=== PATIENT | female | born 1970 | race Caucasian/White ===

== ENCOUNTER 2020-04-28 13:24 | Observation (INO) | payer OTHER ==
[~2020-04-28] VITALS: Ht 172.7 cm; Wt 74.8 kg
[2020-04-28 14:40] LABS: RED BLOOD COUNT 4.35 M/UL (4.00-5.10); WHITE BLOOD COUNT 4.2 K/UL (4.5-11.0)
[2020-04-28 15:13] LABS: BUN/CREATININE RATIO 21 (0-10)
[2020-04-28] MEDS ORDERED: ZYRTEC10 MG PO (17:34)
[2020-04-28] MEDS ORDERED: FISH OIL 1,0001 EACH PO (17:35)
[2020-04-28] MEDS ORDERED: MAGNESIUM500 MG PO (17:36)
[2020-04-28] MEDS ORDERED: ASPIRIN 325MG325 MG PO (17:37)
[2020-04-28] MEDS ORDERED: MULTI-VITAMIN1 EACH PO (17:37)
[2020-04-28] MEDS ORDERED: ALEVE220 MG PO (17:39)
[2020-04-29 04:08] LABS: HEMOGLOBIN 12.3 gm/dl (12.3-15.3); RED BLOOD COUNT 4.19 M/UL (4.00-5.10); WHITE BLOOD COUNT 3.5 K/UL (4.5-11.0)
[2020-04-29 04:33] LABS: BUN/CREATININE RATIO 22 (0-10)
--- NOTE | 2020-04-29 19:11 | NUR ---
UPON SHIFT ARRIVAL [facility] RN STATED THE PT WAS CLEARED BY NEUROLOGY TO GO HOME; JUST WAITING FOR DC ORDERS FROM HOSPITALIST DR. OVALLES; THE RN ON [facility] STATED THEY HAD CALLED HIM NUMEROUS TIMES AND COULD NOT GET AHOLD OF HIM AND THE MD NEVER DID RETURN THE CALLS. AFTER SHIFT CHANGE THE OF THE PT CAME OUT AND WAS CLEARLY AGGRAVATED WANTING TO GO HOME. I TRIED TO CALL DR. OVALLES AGAIN WHILE THE OF THE PT WAS STANDING HERE HE DID NOT ANSWER. I THEN WENT STRAIGHT UP TO [facility] OFFICE AND EXPLAINED THE SITUATION, GILBERT CALLED FROM THE HOUSE NUMBER AND HE ANSWERED. HE STATED HE WOULD COME UP AND PLACE A DISCHARGE ORDER IN FOR THE PT.
== END 2020-04-29 19:37 | disposition home or self-care (01) ==
LOC: ER1 13:24 → CDU 16:48 → MED SURG 4 16:48
PROVIDERS: Family Medicine; Physician Assistant; ADMIT Hospitalist
DX: R51.9 Headache, unspecified (principal); R20.0 Anesthesia of skin; I10 Essential (primary) hypertension; E78.5 Hyperlipidemia, unspecified; E04.2 Nontoxic multinodular goiter; I82.403 Acute embolism and thrombosis of unspecified deep veins of lower extremity, bilateral; Z86.73 Personal history of transient ischemic attack (TIA), and cerebral infarction without residual deficits; Z90.710 Acquired absence of both cervix and uterus; Z82.49 Family history of ischemic heart disease and other diseases of the circulatory system; Z83.3 Family history of diabetes mellitus; Z79.899 Other long term (current) drug therapy; Z87.891 Personal history of nicotine dependence; Z20.822 Contact with and (suspected) exposure to COVID-19
CPT/HCPCS: ECHO; 36415; 70450; 70551; 80048; 80053; 80061; 82550; 82553; 83874; 84439; 84443; 84484; 85025; 85610; 85652; 90471; 92610; 93306; 93880; 96374; 96375; 97161; 97165; 99285; G0378; J1200; J1885; J7030; U0002

== ENCOUNTER 2020-07-09 15:04 | Emergency (ER) | payer OTHER ==
[~2020-07-09 15:04] MED LIST: ALEVE220 MG PO; ASPIRIN 325MG325 MG PO; FISH OIL 1,0001 EACH PO; MAGNESIUM500 MG PO; MULTI-VITAMIN1 EACH PO; ZYRTEC10 MG PO
[2020-07-09 17:29] LABS: HEMOGLOBIN 12.6 gm/dl (12.3-15.3); RED BLOOD COUNT 4.15 M/UL (4.00-5.10)
[2020-07-09 18:15] LABS: BUN/CREATININE RATIO 18 (0-10)
== END 2020-07-09 20:07 | disposition home or self-care (01) ==
LOC: ER1 15:04
PROVIDERS: Emergency Medicine
DX: R00.2 Palpitations (principal); Z20.822 Contact with and (suspected) exposure to COVID-19; I10 Essential (primary) hypertension; Z88.5 Allergy status to narcotic agent; Z88.0 Allergy status to penicillin; Z88.8 Allergy status to other drugs, medicaments and biological substances; Z90.710 Acquired absence of both cervix and uterus
CPT/HCPCS: 0240U; 71045; 80053; 82550; 82553; 83605; 83690; 84484; 85025; 85379; 85610; 85730; 93005; 99285; Q9967

== ENCOUNTER → 2020-12-16 | Outpatient (CLI) | payer MEDICARE | LOC: MAMO 12-15 14:30 | DX: Z12.31 Encounter for screening mammogram for malignant neoplasm of breast (principal) | CPT/HCPCS: 77063; 77067 ==

== ENCOUNTER → 2021-02-04 | Outpatient (CLI) | payer OTHER | LOC: MAMO 13:31 | DX: Z12.31 Encounter for screening mammogram for malignant neoplasm of breast (principal) | CPT/HCPCS: 77065 ==

== ENCOUNTER 2021-04-14 19:11 | Observation (INO) | payer MEDICARE ==
[~2021-04-14] VITALS: Ht 172.7 cm; Wt 81.6 kg
[2021-04-14 20:05] LABS: HEMOGLOBIN 13.6 gm/dl (12.3-15.3); RED BLOOD COUNT 4.42 M/UL (4.00-5.10); WHITE BLOOD COUNT 5.3 K/UL (4.5-11.0)
[2021-04-14 20:33] LABS: BUN/CREATININE RATIO 25 (0-10)
[2021-04-15] MEDS ORDERED: LIPITOR TAB 1010 MG PO (00:55)
[2021-04-15] MEDS ORDERED: LOSARTAN POTASS25 MG PO (00:56)
[2021-04-15] MEDS ORDERED: ASPIRIN EC81 MG PO (00:57)
[2021-04-15] MEDS ORDERED: IMITREX50 MG PO (15:54)
== END 2021-04-15 17:18 | disposition home or self-care (01) ==
LOC: ER1 19:11 → 3 EAST 22:00 → CDU 22:00 → 3 EAST 22:00 → CDU 22:06 → 3 EAST 22:07 → CDU 22:08 → 3 EAST 04-15 00:47
PROVIDERS: Preventive Medicine Occupational Medicine; ADMIT Internal Medicine
DX: R20.0 Anesthesia of skin (principal); Z20.822 Contact with and (suspected) exposure to COVID-19; G43.909 Migraine, unspecified, not intractable, without status migrainosus; I10 Essential (primary) hypertension; E78.5 Hyperlipidemia, unspecified; Z79.82 Long term (current) use of aspirin; Z79.899 Other long term (current) drug therapy; Z86.73 Personal history of transient ischemic attack (TIA), and cerebral infarction without residual deficits; Z87.891 Personal history of nicotine dependence; Z88.0 Allergy status to penicillin; Z88.5 Allergy status to narcotic agent; Z88.8 Allergy status to other drugs, medicaments and biological substances
CPT/HCPCS: 0240U; 70450; 70551; 71045; 80053; 82550; 82553; 83874; 84484; 85025; 85652; 86140; 93005; 96374; 96375; 99285; G0378; J1650; J1885; J2405

== ENCOUNTER → 2021-07-16 | Outpatient (CLI) | payer MEDICARE ==
[~2021-07-16] MED LIST changes: +ASPIRIN EC81 MG PO; +IMITREX50 MG PO; +LIPITOR TAB 1010 MG PO; +LOSARTAN POTASS25 MG PO
== END ==
LOC: MAMO 10:00
DX: R92.8 Other abnormal and inconclusive findings on diagnostic imaging of breast (principal)
CPT/HCPCS: 76641-RT; 77065